=== PATIENT | male | born 1970 | race Caucasian/White ===

== ENCOUNTER → 2016-10-11 | Outpatient (REF) | LOC: WSOH 07:51 | DX: Z00.00 Encounter for general adult medical examination without abnormal findings (principal) ==

== ENCOUNTER 2020-08-24 06:10 | Day surgery (SDC) | payer BC ==
[~2020-08-24] VITALS: Ht 172.7 cm; Wt 98.1 kg
[2020-08-24] MEDS ORDERED: PRINIVIL20 MG PO (06:44)
[2020-08-24] MEDS ORDERED: GARLIC100 MG PO (06:45)
[2020-08-24] MEDS ORDERED: OMEGA-3 1000 MG1 CAP PO (06:45)
[2020-08-24] MEDS ORDERED: ONE-A-DAY ESSE1 EACH PO (06:46)
[2020-08-24 06:55] VITALS: BP 122/84; PULSE 70; TEMP 98.2
[2020-08-24 08:20] VITALS: BP 116/60; PULSE 63; TEMP 97.6
[2020-08-24 08:30] VITALS: BP 107/77; PULSE 62
[2020-08-24 08:45] VITALS: BP 113/73; PULSE 60
[2020-08-24 09:00] VITALS: BP 124/70; PULSE 63
--- NOTE | 2020-08-24 09:20 | NUR ---
0820 Pt returns from endo procedure via cart. Pt ambulates from cart to recliner with RN assist. Monitors on and alarms set. Call light within reach. Pt's present in room. Pt alert and oriented. Report received from BROCK [facility]y. Pt requests muffin, applesauce, and coffee. Pt denies any pain or nausea and voices no other complications. 0830 Pt taking food and drink well. No complications voiced. 0910 Discharge instructions given to pt and . All questions answered to their satisfaction. Handed to them are a thank you card and discharge information. 0920 Pt transferred out of hospital via wheelchair and this RN assist to private vehicle driven by .
== END 2020-08-24 09:20 | disposition home or self-care (01) ==
LOC: SDCO 06:10
DX: Z12.11 Encounter for screening for malignant neoplasm of colon (principal); D12.4 Benign neoplasm of descending colon; K63.5 Polyp of colon; K57.30 Diverticulosis of large intestine without perforation or abscess without bleeding; I10 Essential (primary) hypertension; Z20.822 Contact with and (suspected) exposure to COVID-19; Z79.899 Other long term (current) drug therapy
CPT/HCPCS: J2704; J7030